=== PATIENT | male | born 1970 | race Caucasian/White ===

== ENCOUNTER 2022-10-03 15:22 | Emergency (ER) | payer BC, SELFPAY ==
[2022-10-03 15:33] VITALS: BP 140/94; PULSE 81; RESP 16; TEMP 37.9; O2SAT 99
--- NOTE | 2022-10-03 18:08 | ED.URI ---
HPI - URI/Sore Throat General Chief Complaint: Upper Respiratory Infection Stated Complaint: diarrhea fever aches Time Seen by Provider: 10/03/22 18:10 Source: patient, RN notes reviewed and old records reviewed Mode of arrival: ambulatory Limitations: no limitations History of Present Illness HPI Narrative: 52-year-old male with complaints 3 day history of feeling feverish, body aches, diarrhea, cough persistent for 6 days,intermittent headaches. He reports that he has been taking Tylenol and Benadryl for his symptoms. Patient reports that he has been COVID vaccinated with boosters and also has had flu shot. He states that 10 days ago he had flu like symptoms which subsided, reports that he did travel to [place]. MD elicited complaint: cough and sore throat Onset (ago): day(s) (3) Able to tolerate fluids by mouth: Yes Treatments prior to arrival: acetaminophen and other (Benadryl) Related Data Home Medications Medication Instructions Recorded Confirmed tamsulosin 0.4 mg capsule 0.4 mg PO DAILY 10/03/22 10/03/22 Allergies Allergy/AdvReac Type Severity Reaction Status Date / Time No Known Allergies Allergy Verified 10/03/22 17:06 Review of Systems Review of Systems: CONSTITUTIONAL: Reports malaise, chills, sweats, or fever. EYES: Denies visual changes, redness, or discharge. ENT: Reports rhinorrhea, congestion, sinus pain,no otalgia no sore throat. CARDIOVASCULAR: Denies chest pain, palpitations, or edema. RESPIRATORY: Reports cough.? Denies dyspnea. GASTROINTESTINAL: Denies abdominal pain, nausea, vomiting, positive for diarrhea SKIN: Denies rash or itching. MUSCULOSKELETAL: Positive for myalgia. NEUROLOGIC: intermittent headache. All systems reviewed & are unremarkable except as noted in HPI and below PMFSH Past Medical History Medical History (Updated 10/07/22 @ 10:48 by Yocasta Suresh NP) BPH (benign prostatic hyperplasia) Lipoma of abdominal wall removed Social History Social History (Updated 10/07/22 @ 10:47 by Yocasta Suresh NP) Smoking status: Never smoker Alcohol intake: current Alcohol use details: social Substance use: never Substance use type: does not use Gender identity (if verbalized by the patient): Male Comments At time of signature, agree with nursing past medical, surgical, social and family history. There is no relevant family history pertinent to the presenting complaint Exam Narrative: GENERAL: Well-appearing, well-nourished, and in no acute distress. HEAD: Normocephalic EYES: PERRLA, conjunctivae clear ENT: Nares clear, turbinates edematous and erythematous, clear discharge. Mucous membranes moist. TM pearly garg with dull light reflex bilaterally; no tragal tenderness. Oropharynx erythematous without lesions. Tonsils not enlarged and without exudate, no drooling, no hoarseness, no trismus, uvula midline. NECK: Supple. No lymphadenopathy CHEST: Clear to auscultation, breath sounds equal. No wheezing, rhonchi, rales, or stridor. No respiratory distress, speaks in full sentences.dry cough, SAO2 99% on room air HEART: Regular rate and rhythm. No murmur heard. SKIN: Warm, dry, no rash. NEURO: Alert and oriented x3. PSYCH: Normal mood and affect Course Course Emergency Course: Patient is aware of diagnosis, understands and agrees to treatment plan.? Anticipatory guidance given.? Patient agrees to follow-up as directed and is aware of reasons to seek care at the emergency department. Portions of this record may have been created with voice recognition software Level of Care: Express Care Visit Vital Signs Vital signs: Vital Signs Temperature 37.9 C H 10/03/22 15:33 Pulse Rate 81 10/03/22 15:33 Respiratory Rate 16 10/03/22 15:33 Blood Pressure 140/94 H 10/03/22 15:33 Pulse Oximetry 99 10/03/22 15:33 Oxygen Delivery Room Air 10/03/22 15:33 Temperature 37.9 C H 10/03/22 15:33 Pulse Rate 81 10/03/22 1
--- NOTE | 2022-10-03 18:44 | ED.URI ---
HPI - URI/Sore Throat General Chief Complaint: Upper Respiratory Infection Stated Complaint: diarrhea fever aches Time Seen by Provider: 10/03/22 18:10 Source: patient, RN notes reviewed and old records reviewed Mode of arrival: ambulatory Limitations: no limitations History of Present Illness HPI Narrative: 52-year-old male presents to [facility] with 3 day history of fever evening feverish with having cough some diarrhea headache Related Data Home Medications Medication Instructions Recorded Confirmed tamsulosin 0.4 mg capsule 0.4 mg PO DAILY 10/03/22 10/03/22 Allergies Allergy/AdvReac Type Severity Reaction Status Date / Time No Known Allergies Allergy Verified 10/03/22 17:06 Course Vital Signs Vital signs: Vital Signs Temperature 37.9 C H 10/03/22 15:33 Pulse Rate 81 10/03/22 15:33 Respiratory Rate 16 10/03/22 15:33 Blood Pressure 140/94 H 10/03/22 15:33 Pulse Oximetry 99 10/03/22 15:33 Oxygen Delivery Room Air 10/03/22 15:33 Temperature 37.9 C H 10/03/22 15:33 Pulse Rate 81 10/03/22 15:33 Respiratory Rate 16 10/03/22 15:33 Blood Pressure 140/94 H 10/03/22 15:33 Pulse Oximetry 99 10/03/22 15:33 Oxygen Delivery Room Air 10/03/22 15:33 MDM - URI/Sore Throat Lab Data Labs: Lab Results 10/03/22 Range/Units 18:15 POC SARS CoV-2 Ag Negative (Negative) Influenza A Screen Negative Reference Range: Negative Influenza B Screen Negative Reference Range: Negative Discharge Plan Discharge Clinical Impression: Upper respiratory infection, Diarrhea Patient Disposition: Home, Self-Care Condition: Stable Instructions: Upper Respiratory Infection (ED), Gastroenteritis (ED) Additional Instructions: Increase fluids especially juices and water [id number] cough and cold medicine of your choice for your symptoms Tylenol or ibuprofen for any fever pain Steroids as directed--take with food Zofran for nausea and Bentyl for abdominal cramping heat to the face 20-30 minutes 4-6 times a day for pain Salt water gargles, throat lozenges or throat sprays as desired If your symptoms persist, change or worsen significantly before you can contact your personal physician then please, without delay, go to the emergency department for further evaluation. Follow-up with PCP in 7-10 days or sooner if needed Follow up with PCP soon in regards to your blood pressure which is elevated above threshold for referral. Blood pressure above 120/80 may indicate pre-hypertension. 140/94 Prescriptions: New ondansetron 4 mg tablet,disintegrating 4 mg PO Q6H PRN (Reason: nausea and vomiting) Qty: 20 0RF dicyclomine 10 mg capsule 10 mg PO TID Qty: 20 0RF methylprednisolone [Medrol (Tian)] 4 mg tablets,dose pack 4 mg PO DAILY Qty: 21 0RF Rx Instructions: per medrol dose pack No Action tamsulosin 0.4 mg Capsule 0.4 mg PO DAILY Follow-up/Referrals: Margarita,Carlos Caruso MD [Primary Care Provider] - Time of Disposition: 18:53 Quality [place] Coma Scale Eyes: Open Verbal: Oriented and Alert Motor: Follows Commands [place] Coma Total Score: 15
== END 2022-10-03 19:08 | disposition home or self-care (01) ==
PROVIDERS: Emergency Provider Registered Nurse; PCP Family Medicine
DX: J06.9 Acute upper respiratory infection, unspecified (principal); R19.7 Diarrhea, unspecified; Z20.822 Contact with and (suspected) exposure to COVID-19
CPT/HCPCS: 87426; 87804; 99213; C9803; G0463